=== PATIENT | female | born 1945 | race African-American/Black ===

== ENCOUNTER 2017-05-01 08:25 | Emergency (ER) | payer OTHER ==
[~2017-05-01] VITALS: Ht 157.5 cm; Wt 72.6 kg
[~2017-05-01 08:25] MED LIST: ANTI-GAS40 MG/0.6 PO; ASPIR 8181 MG PO; ATORVASTATIN CA80 MG PO; COZAAR 50 MG TA50 M2 PO; HYDROCODONE-APA1 TA1 PO; IMDUR 30 MG TAB30 M1 PO; LIDODERM 5%1 PATC1 TRANSDERM; LIORESAL 10 MG10 MG PO; PLAVIX 75 MG TA75 M1 PO; PROTONIX40 M1 PO; SENOKOT-S1 TA1 PO; TYLENOL WITH CO1 TA1 PO
[2017-05-01 09:26] LABS: ABSOLUTE NEUTROPHILS 4.8 thou/uL (1.4-8.2); BASOPHILS 1.1 % (0.0-2.0); HEMATOCRIT 36.8 % (37.0-47.0); LYMPHOCYTES 26.5 % (24.0-44.0); MANUAL DIFF NO; MCH 31.1 pg (26.0-34.0); MCHC 32.7 g/dL (28.0-37.0); MCV 95.1 fL (80.0-100.0); MONOCYTES 6.1 % (1.0-8.0); PLATELET COUNT 454 thou/uL (150-400); POLYS 64.3 % (36.0-66.0); RBC 3.87 mil/uL (4.20-5.00); RDW 16.8 % (10.5-14.5); WBC 7.4 thou/uL (4.0-11.0)
[2017-05-01 09:35] LABS: CALCIUM 9.3 mg/dL (8.5-10.1); POTASSIUM 3.3 mmol/L (3.5-5.1)
[2017-05-01] MEDS ORDERED: DOXYCYCLINE 10100 MG PO (10:32)
[2017-05-01] MEDS ORDERED: MOBIC15 MG PO (10:33)
[2017-05-01 11:05] VITALS: BP 129/82
== END 2017-05-01 11:07 | disposition home or self-care (01) ==
LOC: ER 08:25
PROVIDERS: Physician Assistant
DX: R05 Cough (principal); M16.11 Unilateral primary osteoarthritis, right hip; F17.210 Nicotine dependence, cigarettes, uncomplicated; I25.10 Atherosclerotic heart disease of native coronary artery without angina pectoris

== ENCOUNTER → 2017-07-27 | Outpatient (CLI) | payer OTHER ==
[~2017-07-27] MED LIST changes: +AUGMENTIN 875-1 EACH PO; +DOXYCYCLINE 10100 MG PO; +MOBIC15 MG PO; +VITAMIN D2000 UNIT
== END ==
LOC: RAD 10:28
DX: M16.0 Bilateral primary osteoarthritis of hip (principal); M47.896 Other spondylosis, lumbar region; M25.561 Pain in right knee; M25.562 Pain in left knee; M17.0 Bilateral primary osteoarthritis of knee

== ENCOUNTER 2017-08-28 19:41 | Inpatient (IN) | payer OTHER ==
[~2017-08-28] VITALS: Ht 157.5 cm; Wt 69.9 kg
--- NOTE | ~2017-08-28 | EKG ---
[place] [address] [facility] [place] [address] ELECTROCARDIOGRAM REPORT Name: DACIA CARLISLE Morris Room #: 412-P ADM IN M.R.#: [id number] Admission: 08/28/17 Attend Phys: Pierre Wiseman Discharge: Date of : 45 Report #: [id number] THIS REPORT FOR: //name// [facility] ED Test Date: 2017-08-28 Test Time: 20:50:56 Pat Name: DACIA CARLISLE Department: Room: 412 Gender: F Field Talent Qualification Specialist: KATHY Maurice : 1945 Requested By: Bisi Grande Order Number: [id number] MD: Valentin Tapia Measurements Intervals [place] Rate: 66 P: 40 DC: 169 QRS: -13 QRSD: 91 T: 38 QT: 396 QTc: 415 Interpretive Statements Sinus rhythm Left ventricular hypertrophy Compared to ECG 02/27/2016 20:35:28 ST segment abnormality is no longer present Electronically Signed On 08-30-2017 8:49:53 FINANCIAL WRITER by Valentin Tapia [email or web address] <ELECTRONICALLY SIGNED> By: Valentin Tapia MD, MERG[facility] WITH [facility] 08/30/17 0849 49 49 Valentin Tapia MD, [facility]GED WITH [facility] /EPI
--- NOTE | ~2017-08-28 | 2DMMODE ---
[facility] [address] [email or web address] [address] 2 D/M-MODE ECHOCARDIOGRAM Name: DACIA CARLISLE Room #: 412-P [facility] IN ..#: [id number] Admission: 08/28/17 Attend Phys: Pierre Morales Discharge: Date of : 45 Date of Service: 08/29/17 1235 Report #: [id number] THIS REPORT FOR: //name// APPROVED REPORT Study performed: 08/29/2017 11:47:22 EXAM: Comprehensive 2D, Doppler, and color-flow Echocardiogram Patient Location: Echo lab Room #: [facility] Status: routine BSA: 1.71 HR: 72 bpm BP: 104/68 mmHg Rhythm: NSR Other Information Study Quality: Good Indications Chest pain. Hx: MT, stent, HTN, HLP. 2D Dimensions RVDd: 37.25 mm LVEF(%): 61.32 (>50%) IVSd: 10.72 (7-11mm) LVOT Diam: 20.17 (18-24mm) LVDd: 48.38 mm PWd: 10.01 (7-11mm) Ascending Ao: 32.03 (22-36mm) LVDs: 32.45 (25-40mm) Aortic Root: 36.66 mm Duarte's LVEF: 61.32 % Volumes Left Atrial Volume (Systole) Single Plane 4CH: 30.60 mL Single Plane 2CH: 43.31 mL LA ESV Index: 23.00 mL/m2 Aortic Valve AoV Peak Jose Alfredo.: 1.83 m/s AO Peak Gr.: 13.45 mmHg LVOT Max P.33 mmHg LVOT Max V: 1.53 m/s JULIO CÉSAR Vmax: 2.66 cm2 Mitral Valve E/A Ratio: 1.1 MV Decel. Time: 193.86 ms [facility] [place] [address] 2 D/M-MODE ECHOCARDIOGRAM Name: DACIA CARLISLE Room #: 412-P [facility] IN .R.#: [id number] Admission: 08/28/17 Attend Phys: Pierre Morales Discharge: Date of : 45 Date of Service: 08/29/17 1235 Report #: [id number] MV E Max Jose Alfredo.: 0.88 m/s MV A Jose Alfredo.: 0.77 m/s MV PHT: 56.22 ms IVRT: 87.66 ms Pulmonary Valve PV Peak Jose Alfredo.: 1.27 m/s PV Peak Gr.: 6.44 mmHg Pulmonary Vein P Vein S: 0.59 m/s P Vein A: 0.43 m/s P Vein D: 0.41 m/s P Vein A Dur.: 115.3 msec P Vein S/D Ratio: 1.44 Tricuspid Valve TR Peak Jose Alfredo.: 2.45 m/s RAP Estimate: 5.00 mmHg TR Peak Gr.: 23.93 mmHg PA Pressure: 29.00 mmHg Left Ventricle The left ventricle is normal size. LV wall thickness is at the upper limits of normal. Left ventricular systolic function is normal. LVEF is 60-65%. Moderate diastolic dysfunction is present (pseudonormal filling). Right Ventricle The right ventricle is normal size. The right ventricular systolic function is normal. Atria The left atrium size is normal. The right atrium size is normal. Aortic Valve Aortic valve leaflets are mildly thickened. No aortic regurgitation is present. There is no aortic valvular stenosis. Mitral Valve The mitral valve is normal in structure. Trace mitral regurgitation. Tricuspid Valve The tricuspid valve is normal in structure. Mild tricuspid regurgitation. Estimated PAP is 30mmHg. Pulmonic Valve The pulmonary valve is normal in structure. Mild pulmonic [facility] [address] [place] [address] 2 D/M-MODE ECHOCARDIOGRAM Name: DACIA CARLISLE Room #: 412-P [facility] IN [facility]#: [id number] Admission: 08/28/17 Attend Phys: Pierre Morales Discharge: Date of : 45 Date of Service: 08/29/17 1235 Report #: [id number] regurgitation. Great Vessels The aortic root is normal in size. IVC is normal in size and collapses >50% with inspiration. Pericardium There is no pericardial effusion. <Conclusion> The left ventricle is normal size. LV wall thickness is at the upper limits of normal. LVEF is 60-65%. Moderate diastolic dysfunction is present (pseudonormal filling). The right ventricle is normal size. The left atrium size is normal. The right atrium size is normal. Aortic valve leaflets are mildly thickened. There is no aortic valvular stenosis. Trace mitral regurgitation. Mild tricuspid regurgitation. Estimated PAP is 30mmHg. There is no pericardial effusion. <ELECTRONICALLY SIGNED> By: Gilson Rojas MD, FACC 08/29/17 1235 1235 1235 Gilson Rojas MD, FACC /INF
[~2017-08-28 19:41] MED LIST changes: -AUGMENTIN 875-1 EACH PO; -VITAMIN D2000 UNIT
[2017-08-28 19:44] VITALS: BP 119/71
[2017-08-28] MEDS ORDERED: VITAMIN D2000 UNIT (20:16)
[2017-08-28 21:14] LABS: HEMATOCRIT 38.9 % (37.0-47.0); HEMOGLOBIN 13.1 gm/dL (12.0-15.0); MCHC 33.7 g/dL (28.0-37.0); RBC 3.97 mil/uL (4.20-5.00); RDW 17.2 % (10.5-14.5); WBC 10.4 thou/uL (4.0-11.0)
[2017-08-28 21:22] LABS: ANION GAP 11 mmol/L (7-16); BUN 14 mg/dL (7-18); CALCIUM 8.9 mg/dL (8.5-10.1); CHLORIDE 112 mmol/L (98-107); CO2 23 mmol/L (21-32); CREATININE 0.9 mg/dL (0.6-1.0); GLUCOSE 94 mg/dL (74-106); POTASSIUM 3.9 mmol/L (3.5-5.1); SODIUM 146 mmol/L (136-145)
[2017-08-28 21:31] LABS: TROPONIN-I < 0.04 ng/mL (<0.06)
[2017-08-28 22:19] LABS: ABSOLUTE NEUTROPHILS 4.5 thou/uL (1.4-8.2); LARGE PLATELETS RARE; PLATELET COUNT 314 thou/uL (150-400)
[2017-08-28 22:20] LABS: ANISOCYTOSIS 1+
[2017-08-28 23:22] VITALS: BP 127/71
[2017-08-28 23:30] VITALS: BP 156/93
[2017-08-29 05:38] LABS: ANION GAP 10 mmol/L (7-16); BUN 14 mg/dL (7-18); CALCIUM 8.4 mg/dL (8.5-10.1); CHLORIDE 114 mmol/L (98-107); CO2 23 mmol/L (21-32); CREATININE 1.1 mg/dL (0.6-1.0); GLUCOSE 95 mg/dL (74-106); POTASSIUM 3.7 mmol/L (3.5-5.1); SODIUM 147 mmol/L (136-145); TROPONIN-I < 0.04 ng/mL (<0.06)
[2017-08-29 05:53] VITALS: BP 115/60
[2017-08-29 09:56] VITALS: BP 104/68
[2017-08-29 17:23] VITALS: BP 106/59
[2017-08-29 20:18] VITALS: BP 119/55
[2017-08-30 04:00] VITALS: BP 125/50
[2017-08-30 07:51] VITALS: BP 130/59
[2017-08-30 11:33] VITALS: BP 165/80
[2017-08-30 15:20] VITALS: BP 158/74
[2017-08-30 20:00] VITALS: BP 115/56
[2017-08-31 04:00] VITALS: BP 130/62
[2017-08-31] MEDS ORDERED: AUGMENTIN 875-1 EACH PO (07:34)
[2017-08-31 08:28] VITALS: BP 151/89
[2017-08-31 13:12] VITALS: BP 151/89
== END 2017-08-31 14:40 | disposition home or self-care (01) | DRG 178 ==
LOC: ER 19:41 → 4N 22:08 → EROBS 22:08 → 4N 23:18 → ENTRNSPT 08-31 14:26 → EDTRNSPTSTS 08-31 14:27 → 4N 08-31 14:40
PROVIDERS: Emergency Medicine; Nurse Practitioner Family
DX: J69.0 Pneumonitis due to inhalation of food and vomit (principal); E87.0 Hyperosmolality and hypernatremia; I25.10 Atherosclerotic heart disease of native coronary artery without angina pectoris; M19.90 Unspecified osteoarthritis, unspecified site; I10 Essential (primary) hypertension; E78.5 Hyperlipidemia, unspecified; K21.9 Gastro-esophageal reflux disease without esophagitis; F17.210 Nicotine dependence, cigarettes, uncomplicated; E11.9 Type 2 diabetes mellitus without complications; I25.2 Old myocardial infarction; Z79.899 Other long term (current) drug therapy; Z90.710 Acquired absence of both cervix and uterus; Z88.5 Allergy status to narcotic agent; Z95.5 Presence of coronary angioplasty implant and graft
CPT/HCPCS: 10790

== ENCOUNTER → 2018-06-20 | Outpatient (CLI) | payer OTHER ==
[~2018-06-20] VITALS: Ht 157.5 cm; Wt 63.5 kg
[~2018-06-20] MED LIST changes: +AUGMENTIN 875-1 EACH PO; +LOSARTAN POTAS100 MG PO; +TRAMADOL 50 MG50 MG PO; +VITAMIN D2000 UNIT PO
--- NOTE | ~2018-06-20 | P ---
[facility] [place] [address] PROCEDURE REPORT Name: DACIA CARLISLE Room #: [facility]#: [id number] Admission: 06/20/18 Attend Phys: Frantz Costa Discharge: Date of : 45 Report #: [id number] THIS REPORT FOR: //name// CC: Kimberlee Marin DATE OF SERVICE: 06/20/2018 PROCEDURE PERFORMED: Upper endoscopy with biopsies. HISTORY OF PRESENT ILLNESS: The patient is a 72-year-old female with anemia, had a hospitalization in early May this year for shortness of breath. She was noted to be anemic. She has a history of anemia. Last colonoscopy reportedly 2 years ago at [facility] that was negative. The patient was transfused during her last hospitalization. She does take aspirin and Plavix as well as Protonix. She denies any obvious blood in her stools. She did have a Hemoccult negative stool during her last hospitalization. Plan is for EGD. DESCRIPTION OF PROCEDURE: The risks and benefits of the procedure were explained to the patient, those risks including but not limited to bleeding, perforation and the risk of sedation. She understood these risks and gave informed consent. Sedation was given using propofol per Anesthesia. Next, using a standard Olympus upper endoscope, the scope was placed in the patient's mouth and advanced under direct vision through the esophagus, stomach and into the second portion of the duodenum. The larynx was normal in appearance. The esophagus was normal throughout. The GE junction was normal. Overall, the gastric fundus was normal; however, in the mid body of the stomach there was a linear ulcer noted. This was approximately 2.5 cm long, clean white based. There was no evidence of bleeding. Biopsies were obtained to rule out H. pylori. The gastric antrum was normal. The duodenal bulb was normal. In the first portion of the duodenum, a single nonbleeding AVM was noted. This was cauterized using a 7-Luxembourgish bipolar cautery. The second portion of the duodenum was normal. Biopsies were obtained to rule out the possibility of celiac sprue. The scope was then withdrawn and the procedure terminated. The patient tolerated the procedure well. IMPRESSION: 1. Linear gastric ulcer, no active bleeding at this time. 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 3. Otherwise, normal upper endoscopy. RECOMMENDATIONS: 1. Await biopsy results. 2. The patient is already on daily PPI therapy, needs to continue long-term [address] [address] PROCEDURE REPORT Name: DACIA CARLISLE Room #: [facility]#: [id number] Admission: 06/20/18 Attend Phys: Frantz Costa Discharge: Date of : 45 Report #: [id number] Plavix and aspirin, because of the gastric ulcer we will therefore add Carafate 1 gram b.i.d. long-term and continue to monitor her hemoglobin. Thank you for allowing me to participate in her care. <ELECTRONICALLY SIGNED> By: Frantz Marin MD 06/22/18 0808 1049 1359 Frantz Marin MD /nt
--- NOTE | ~2018-06-20 | EKG ---
[address] [address] ELECTROCARDIOGRAM REPORT Name: CARLISLEDACIA L Room #: [facility]#: [id number] Admission: 06/20/18 Attend Phys: Frantz Costa Discharge: Date of : 45 Report #: [id number] THIS REPORT FOR: //name// [facility] Test Date: 2018-06-20 Test Time: 09:58:22 Pat Name: DACIA CARLISLE Department: Room: Gender: F Farm Management Supervisor: KENIA : 1945 Requested By: Frantz Marin Order Number: [id number] MD: Julius Collazo Measurements Intervals [place] Rate: 74 P: 36 [place]: 158 QRS: -9 QRSD: 90 T: 41 QT: 411 QTc: 456 Interpretive Statements Sinus rhythm Left ventricular hypertrophy Compared to ECG 08/28/2017 20:50:56 No significant changes Electronically Signed On 06-20-2018 16:19:17 CEO ZIFF DAVIS by Julius Collazo [email or web address] <ELECTRONICALLY SIGNED> By: Julius Collazo MD 06/20/18 1619 Julius Collazo MD /KEON
[2018-06-20 09:56] LABS: HEMATOCRIT 28.6 % (37.0-47.0); HEMOGLOBIN 9.2 gm/dL (12.0-15.0)
== END | disposition home or self-care (01) ==
LOC: GI 08:42
PROVIDERS: Specialist
DX: K29.50 Unspecified chronic gastritis without bleeding (principal); K31.819 Angiodysplasia of stomach and duodenum without bleeding; K25.9 Gastric ulcer, unspecified as acute or chronic, without hemorrhage or perforation; K21.9 Gastro-esophageal reflux disease without esophagitis; I10 Essential (primary) hypertension; I25.2 Old myocardial infarction; I73.9 Peripheral vascular disease, unspecified; D64.9 Anemia, unspecified; J43.9 Emphysema, unspecified; E78.5 Hyperlipidemia, unspecified; F17.210 Nicotine dependence, cigarettes, uncomplicated; Z90.710 Acquired absence of both cervix and uterus; Z79.899 Other long term (current) drug therapy; Z79.82 Long term (current) use of aspirin; Z95.5 Presence of coronary angioplasty implant and graft; Z98.890 Other specified postprocedural states; Z90.49 Acquired absence of other specified parts of digestive tract; Z88.8 Allergy status to other drugs, medicaments and biological substances
CPT/HCPCS: 62110; 62900

== ENCOUNTER 2018-07-20 23:56 | Inpatient (IN) | payer OTHER ==
[~2018-07-20] VITALS: Ht 157.5 cm; Wt 70.8 kg
[2018-07-21 00:20] VITALS: BP 134/74
[2018-07-21 00:39] LABS: HEMATOCRIT 22.5 % (37.0-47.0); HEMOGLOBIN 7.1 gm/dL (12.0-15.0); RDW 21.8 % (10.5-14.5)
[2018-07-21 00:41] LABS: MCH 24.5 pg (26.0-34.0); MCHC 31.4 g/dL (28.0-37.0); MCV 78.1 fL (80.0-100.0); PLATELET COUNT 352 thou/uL (150-400); RBC 2.88 mil/uL (4.20-5.00); WBC 9.3 thou/uL (4.0-11.0)
[2018-07-21 00:43] LABS: ANION GAP 9 mmol/L (7-16); BUN 7 mg/dL (7-18); CALCIUM 9.3 mg/dL (8.5-10.1); CHLORIDE 107 mmol/L (98-107); CO2 26 mmol/L (21-32); CREATININE 0.8 mg/dL (0.6-1.0); GLUCOSE 111 mg/dL (74-106); POTASSIUM 3.7 mmol/L (3.5-5.1); SODIUM 142 mmol/L (136-145)
[2018-07-21 00:48] LABS: URINE BILIRUBIN NEGATIVE (Negative); URINE BLOOD TRACE (Negative); URINE CLARITY CLEAR; URINE COLOR YELLOW; URINE GLUCOSE-RANDOM* NEGATIVE (Negative); URINE KETONES NEGATIVE (Negative); URINE LEUKOCYTES-REFLEX NEGATIVE (Negative); URINE NITRITE-REFLEX NEGATIVE (Negative); URINE PROTEIN (DIPSTICK) NEGATIVE (Negative); URINE UROBILINOGEN 0.2 E.U./dl (0.2-1.0)
[2018-07-21 00:51] LABS: ALBUMIN 3.5 g/dL (3.4-5.0); LIPASE 108 U/L (73-393); MAGNESIUM 1.9 mg/dL (1.8-2.4); SGOT 22 U/L (15-37); SGPT 16 U/L (30-65); TOTAL BILIRUBIN 0.1 mg/dL (<0.1-1.0); TOTAL PROTEIN 7.5 g/dL (6.4-8.2); TROPONIN-I <0.06 ng/mL (<0.06)
[2018-07-21 01:24] LABS: ABSOLUTE NEUTROPHILS 5.6 thou/uL (1.4-8.2)
[2018-07-21 01:27] LABS: ANISOCYTOSIS 2+; HYPOCHROMASIA 2+; LARGE PLATELETS OCCASIONAL; OVALOCYTES 1+; POLYCHROMASIA 1+
[2018-07-21 01:28] LABS: SCHISTOCYTES RARE
[2018-07-21 01:29] LABS: POIKILOCYTOSIS 1+
[2018-07-21 01:30] LABS: TARGET CELLS OCCASIONAL; TEARDROPS OCCASIONAL
[2018-07-21 05:47] VITALS: BP 137/56
[2018-07-21 06:34] VITALS: BP 165/67
[2018-07-21 07:32] VITALS: BP 161/82
[2018-07-21 10:00] VITALS: BP 140/63; BP 150/78; BP 155/75
--- NOTE | 2018-07-21 13:34 | NUR ---
PATIENT ALERT AND ORIENTED X4, SINUS RHYTHM ON FORMING ACID DUMPER. ON ROOM AIR, CLEAR LUNG SOUNDS. NO COMPLAINTS OF NAUSEA. PATIENT UP WITH STANDBY ASSISTANCE. IV TO RIGHT AND LEFT ARM. REPORT CALLED TO [facility] AT [facility]. PATIENT TRANSFERRED TO [facility] BY THE FIRE DEPARTMENT.
--- NOTE | 2018-07-21 13:51 | EKG ---
[address] [place] [address] ELECTROCARDIOGRAM REPORT Name: DACIA CARLISLE Room #: 456-P ADM IN M.R.#: [id number] Admission: 07/21/18 Attend Phys: Pierre Wiseman Discharge: Date of : 45 Report #: [id number] THIS REPORT FOR: //name// [facility] ED Test Date: 2018-07-21 Test Time: 00:21:10 Pat Name: DACIA CARLISLE Department: Room: [facility] Gender: F Vaccine Manager: FAITH : 1945 Requested By: Javon Stone Order Number: [id number] MD: Valentin Tapia Measurements Intervals [place] Rate: 83 P: 71 [place]: 148 QRS: 16 QRSD: 85 T: 60 QT: 421 QTc: 495 Interpretive Statements Sinus rhythm No significant abnormality Compared to ECG 06/20/2018 09:58:22 Left ventricular hypertrophy no longer present Electronically Signed On 07-21-2018 13:51:47 CENTRAL SERVICE SUPPLY DISTRIBUTOR by Valentin Tapia [email or web address] <ELECTRONICALLY SIGNED> By: Valentin Tapia MD, [facility] 07/21/18 1351 Valentin Tapia MD, FAC /EPI
== END 2018-07-21 13:45 | disposition short-term general hospital (02) | DRG 390 ==
LOC: ER 23:56 → 4W 07-21 06:00
PROVIDERS: Emergency Medicine; ADMIT Hospitalist
PROC: 30233N1 Transfusion of Nonautologous Red Blood Cells into Peripheral Vein, Percutaneous Approach (ICD-10-PCS; principal; 2018-07-21)
DX: K56.609 Unspecified intestinal obstruction, unspecified as to partial versus complete obstruction (principal); I71.4 Abdominal aortic aneurysm, without rupture; I25.10 Atherosclerotic heart disease of native coronary artery without angina pectoris; I73.9 Peripheral vascular disease, unspecified; M19.90 Unspecified osteoarthritis, unspecified site; I10 Essential (primary) hypertension; E78.5 Hyperlipidemia, unspecified; K21.9 Gastro-esophageal reflux disease without esophagitis; J44.9 Chronic obstructive pulmonary disease, unspecified; D64.9 Anemia, unspecified; K25.9 Gastric ulcer, unspecified as acute or chronic, without hemorrhage or perforation; Z90.710 Acquired absence of both cervix and uterus; Z90.49 Acquired absence of other specified parts of digestive tract; Z88.6 Allergy status to analgesic agent; Z95.820 Peripheral vascular angioplasty status with implants and grafts
CPT/HCPCS: 10045